=== PATIENT | male | born 1970 ===

== ENCOUNTER → 2017-09-13 | Outpatient (CLI) | payer OTHER | LOC: SBRMNEURO 20:00 | PROVIDERS: ATTEND Physician Assistant Medical | DX: G47.33 Obstructive sleep apnea (adult) (pediatric) (principal); G47.36 Sleep related hypoventilation in conditions classified elsewhere; G47.61 Periodic limb movement disorder ==

== ENCOUNTER → 2017-11-22 | Outpatient (CLI) | payer OTHER | LOC: SBRMNEURO 20:30 | PROVIDERS: ATTEND Internal Medicine Pulmonary Disease | DX: G47.31 Primary central sleep apnea (principal); G47.33 Obstructive sleep apnea (adult) (pediatric) ==